=== PATIENT | female | born 1995 | race Caucasian/White ===

== ENCOUNTER 2019-11-30 13:23 | Emergency (ER) | payer OTHER ==
[2019-11-30] MEDS ORDERED: METHYLPREDNISOLONE INJ 125 MG/2 ML SDV IV ONE (13:32)
[2019-11-30] MEDS ORDERED: FAMOTIDINE INJ/PF 20 MG/2 ML SDV IV ONE (13:32)
[2019-11-30] MEDS ORDERED: DIPHENHYDRAMINE HCL 50 MG/ML VIAL IV ONE (13:32)
--- NOTE | 2019-11-30 13:37 | ER Document Report ---
ED Medical Screen (RME) - General Stated Complaint: POSSIBLE ALLERGIC REACTION - HPI Notes: 11/30/19 13:34 24-year-old female presents emergency room for hives on her arms, facial swelling with lip tingling that started last night. Patient states she has chronic urticaria, has been to multiple doctors who have always told her to just take Vistaril. Patient not tried any [id number] medications. Last menstrual cycle was 2 weeks ago. Patient states she had difficulty with secretions this morning but is not having any issues now. Patient is talking and laughing without any issues, able to maintain her secretions. Denies any fevers chills, denies any nausea vomiting diarrhea, denies any shortness of breath or chest pain. No recent travel outside of the [place] no recent exposure with COVID patient's I have greeted and performed a rapid initial assessment of this patient. A comprehensive ED assessment and evaluation of the patient, analysis of test results and completion of the medical decision making process will be conducted by additional ED providers. PHYSICAL EXAMINATION: GENERAL: Well-appearing, well-nourished and in no acute distress. HEAD: Atraumatic, normocephalic. EYES: Pupils equal round extraocular movements intact, conjunctiva are normal. Uvula midline. Able to maintain secretions. No noted lip swelling NECK: Normal range of motion CV: s1, s2 regular LUNGS: No respiratory distress Musculoskeletal: Normal range of motion NEUROLOGICAL: Normal speech, normal gait. SKIN: Warm, Dry, normal turgor, no rashes or lesions noted.
[2019-11-30 14:05] LABS: ABSOLUTE LYMPHOCYTES (AUTO) 1.4 10^3/uL (0.5-4.7); ABSOLUTE MONOCYTES (AUTO) 0.3 10^3/uL (0.1-1.4); ABSOLUTE NEUT (AUTO) 10.1 10^3/uL (1.7-8.2); BASOPHILS % (AUTO) 0.4 % (0-2); EOSINOPHILS % (AUTO) 0.4 % (0-6); HEMATOCRIT 37.2 % (36.0-47.0); HEMOGLOBIN 12.3 g/dL (12.0-15.5); LYMPHOCYTES % (AUTO) 11.7 % (13-45); MEAN CORPUSCULAR HEMOGLOBIN 21.8 pg (27.0-33.4); MEAN CORPUSCULAR HGB CONC 33.1 g/dL (32.0-36.0); MEAN CORPUSCULAR VOLUME 66 fl (80-97); MONOCYTES % (AUTO) 2.6 % (3-13); PLATELET COUNT 337 10^3/uL (150-450); RED BLOOD COUNT 5.64 10^6/uL (3.72-5.28); RED CELL DISTRIBUTION WIDTH 18.3 % (11.5-14.0); SEGMENTED NEUTROPHILS % (AUTO) 84.9 % (42-78); TOTAL CELLS COUNTED % (AUTO) 100 %; WHITE BLOOD COUNT 11.9 10^3/uL (4.0-10.5)
--- NOTE | 2019-11-30 14:19 | ER Document Report ---
Entered by SANTO TITUS SCRIBE 11/30/19 0143 Acting as scribe for:FELICIA MORA DO ED General - General Chief Complaint: Allergic Reaction Stated Complaint: POSSIBLE ALLERGIC REACTION Time Seen by Provider: 11/30/19 13:44 Information source: Patient Notes: This 24-year-old female presents to the emergency department complaining of hives and lip swelling that began last night and has worsened today. Patient states that she has been dealing with similar episodes for the past 5 years. Patient states that she has seen a sheet metal work furnace installer to have an allergy test with no positive allergies as a result. Patient said that her previous physicians have tried all different medication, all of which "just make me tired and sleep". Patient said that she takes Hydroxyzine for the pain associated with her hives but this also makes her "fall asleep". Patient states that previously, prednisone packs are what provided relief. - Related Data Allergies/Adverse Reactions: No Known Allergies Allergy (Verified 11/30/19 13:41) Past Medical History - General Information source: Patient - Social History Smoking Status: Never Smoker Cigarette use (# per day): No Chew tobacco use (# tins/day): No Frequency of alcohol use: None Drug Abuse: None Family History: Reviewed & Not Pertinent Patient has suicidal ideation: No Patient has homicidal ideation: No - Medical History Medical History: Negative Surgical Hx: Negative Review of Systems - Review of Systems Constitutional: No symptoms reported EENT: See HPI, Difficulty swallowing, Mouth swelling Cardiovascular: No symptoms reported Respiratory: No symptoms reported Gastrointestinal: No symptoms reported Genitourinary: No symptoms reported Female Genitourinary: No symptoms reported Musculoskeletal: No symptoms reported Skin: See HPI, Other - Hives Hematologic/Lymphatic: No symptoms reported Neurological/Psychological: No symptoms reported -: Yes All other systems reviewed and negative Physical Exam - Vital signs Vitals: Temp Pulse Resp BP Pulse Ox 99.1 F 129 H 18 133/76 H 100 11/30/19 13:29 11/30/19 13:29 11/30/19 13:29 11/30/19 13:29 11/30/19 13:29 - Notes Notes: Physical Exam: General: Alert, appears well. HEENT: Normocephalic. Atraumatic. PERRL. Extraocular movements intact. Oropharynx clear. see skin comment. Neck: Supple. Non-tender. Respiratory: No respiratory distress. Clear and equal breath sounds bilaterally. Cardiovascular: Regular rate and rhythm. Abdominal: Normal Inspection. Non-tender. No distension. Normal Bowel Sounds. Back: No gross abnormalities. Extremities: Moves all four extremities. Upper extremities: See skin comment. Normal ROM. Lower extremities: Normal inspection. No edema. Normal ROM. Neurological: Normal cognition. AAOx4. Normal speech. Psychological: Normal affect. Normal Mood. Skin: Warm. Dry. Normal color. Mild periorbital swelling. Mild perioral dermatitis with associated redness on face. Rash on UE consistent with hives. Course - Re-evaluation Re-evalutation: 11/30/19 13:56 MDM 24 year old with acute urticaria and h/o same. Discussed follow up and she expressed understanding. 11/30/19 14:15 Pt has widely patent airway and no tongue involvement. She is stable for follow up. - Vital Signs Vital signs: Temp Pulse Resp BP Pulse Ox 99.1 F 129 H 18 133/76 H 100 11/30/19 13:29 11/30/19 13:29 11/30/19 13:29 11/30/19 13:29 11/30/19 13:29 - Laboratory Result Diagrams: 11/30/19 13:45 11/30/19 13:45 Laboratory results interpreted by me: 11/30/19 13:45 WBC 11.9 H RBC 5.64 H MCV 66 L MCH 21.8 L RDW 18.3 H Lymph % (Auto) 11.7 L [place] % (Auto) 2.6 L Absolute Neuts (auto) 10.1 H Seg Neutrophils % 84.9 H Discharge - Discharge Clinical Impression: Urticaria Condition: Good Disposition: HOME, SELF-CARE Instructions: Acute Urticaria ([facility]) Additional Instructions: See your doctor or a bite block maker in follow up. Take vistaril as needed for itching. Try salvador for itching too if you can. Please return here for problems or concerns including but not limited to shortness of breath, lip or tongue swelling or other concerns. As discussed, do not drive for the next 4 hours. Prescriptions: Methylprednisolone [Medrol Dosepack (4 mg/Tab) 21 Tab/Dosepak] 4 mg PO ASDIR PRN #1 tab.ds.pk PRN Reason: Hydroxyzine Pamoate [Vistaril] 25 mg PO TID #20 capsule I personally performed the services described in the documentation, reviewed and edited the documentation which was dictated to the scribe in my presence, and it accurately records my words and actions.
[2019-11-30 14:25] LABS: ALBUMIN 4.2 g/dL (3.5-5.0); ALKALINE PHOSPHATASE 119 U/L (38-126); ANION GAP 10 (5-19); ASPARTATE AMINO TRANSFERASE 21 U/L (14-36); BILIRUBIN,TOTAL 0.6 mg/dL (0.2-1.3); BLOOD UREA NITROGEN 19 mg/dL (7-20); CALCIUM 9.3 mg/dL (8.4-10.2); CARBON DIOXIDE 22 mmol/L (22-30); CHLORIDE 106 mmol/L (98-107); GLUCOSE 89 mg/dL (75-110); POTASSIUM 4.2 mmol/L (3.6-5.0); TOTAL PROTEIN 7.9 g/dL (6.3-8.2)
--- NOTE | 2019-11-30 14:36 | RADIOLOGY REPORT (SQ) ---
EXAM DESCRIPTION: CHEST SINGLE VIEW IMAGES COMPLETED DATE/TIME: 11/30/2019 2:19 pm REASON FOR STUDY: allergic reaction, lip tingling, hives COMPARISON: None. EXAM PARAMETERS: NUMBER OF VIEWS: One view. TECHNIQUE: Single frontal radiographic view of the chest acquired. RADIATION DOSE: NA LIMITATIONS: None. FINDINGS: LUNGS AND PLEURA: No opacities, masses or pneumothorax. No pleural effusion. MEDIASTINUM AND HILAR STRUCTURES: No masses. Contour normal. HEART AND VASCULAR STRUCTURES: Heart normal in size. Normal vasculature. BONES: No acute findings. HARDWARE: None in the chest. OTHER: No other significant finding. IMPRESSION: 1. NO ACUTE RADIOGRAPHIC FINDING IN THE CHEST. TECHNICAL DOCUMENTATION: JOB ID: [id number] 2010 [employer]- All Rights Reserved Reading location - IP/workstation name: [email or web address]
[2019-11-30 14:41] VITALS: BP 115/75
== END 2019-11-30 14:41 | disposition home or self-care (01) ==
LOC: ER 13:23
DX: L50.9 Urticaria, unspecified (principal); L30.9 Dermatitis, unspecified; R13.10 Dysphagia, unspecified
CPT/HCPCS: 99283; 96374; 96375; 36415; 85025; 80053; 71045; J1200; J2930; S0028

== ENCOUNTER 2019-12-07 08:42 | Emergency (ER) | payer OTHER ==
--- NOTE | 2019-12-07 09:12 | ER Document Report ---
ED General - General Stated Complaint: POSSIBLE ALLERGIC REACTION Time Seen by Provider: 12/07/19 09:12 Primary Care Provider: VERO PRUETT MD [ACTIVE STAFF] - Follow up as needed - HPI Notes: 24-year-old female presents emergency room with systemic urticaria area that started this morning approximately 5 hours ago. Patient states she finished her last dose of prednisone yesterday from having a similar issue with it a week ago. Patient states she is had chronic [place] area for the last 5 years, has seen core blower, ship's pilot, senior microsoft net developer, white sourer which states she has chronic urticaria area without etiology. Patient still takes Vistaril nightly, though it is prescribed for 3 times a day she states she does not take it during the day because it causes her to be "sleepy". Last menstrual cycle was 2 weeks ago. has not taken any Vistaril today. Denies fevers, chills, chest pain,palpitations, shortness of breath, dyspnea, nausea, vomiting, diarrhea, abdominal pain, hematuria,blurred vision, double vision, loss of vision, speech changes, LH, dizziness, syncope, headaches, wheezing, ST, URI, neck pain, weakness, bowel or bladder dysfunction, saddle anesthesia, numbness or tingling in bilateral upper or lower extremities equally, muscle paralysis, weakness in bilateral upper or lower extremities equally. - Related Data Allergies/Adverse Reactions: No Known Allergies Allergy (Verified 11/30/19 13:41) Past Medical History - General Information source: Patient - Social History Smoking Status: Unknown if Ever Smoked Family History: Reviewed & Not Pertinent Review of Systems - Review of Systems Constitutional: No symptoms reported EENT: No symptoms reported Cardiovascular: No symptoms reported Respiratory: No symptoms reported Gastrointestinal: No symptoms reported Genitourinary: No symptoms reported Female Genitourinary: No symptoms reported Musculoskeletal: No symptoms reported Skin: No symptoms reported Hematologic/Lymphatic: No symptoms reported Neurological/Psychological: See HPI Physical Exam - Vital signs Vitals: Temp Pulse Resp BP Pulse Ox 98.8 F 121 H 16 127/66 H 100 12/07/19 08:50 12/07/19 08:50 12/07/19 08:50 12/07/19 08:50 12/07/19 08:50 - Notes Notes: PHYSICAL EXAMINATION: reviewed vital signs by RN GENERAL: Well-appearing, well-nourished and in no acute distress. HEAD: Atraumatic, normocephalic. EYES: Pupils equal round and reactive to light, extraocular movements intact, conjunctiva are normal. ENT: Nares patent, oropharynx clear without exudates. Moist mucous membranes. Uvula midline. No drooling. To manage secretions. Speech is clear NECK: Normal range of motion, supple without lymphadenopathy LUNGS: Breath sounds clear to auscultation bilaterally and equal. No wheezes rales or rhonchi. HEART: Regular rate and rhythm without murmurs ABDOMEN: Soft, nontender, nondistended abdomen. No guarding, no rebound. No masses appreciated. Female : deferred Musculoskeletal: Normal range of motion, no pitting or edema. No cyanosis. NEUROLOGICAL: Cranial nerves grossly intact. Normal speech, normal gait. Normal sensory, motor exams PSYCH: Normal mood, normal affect. SKIN: Warm, Dry, normal turgor, no rashes or lesions noted. Scattered [place] area systemically Course - Re-evaluation Re-evalutation: 12/07/19 10:29 Patient presents with symptoms consistent with an allergic reaction without anaphylaxis. only cutaneous involvement with multiple areas of hives. Patient has had multiple instances of chronic urticaria, I did see the patient last week for similar issue in the emergency room and was resolved with Solu-Medrol, Benadryl and famotidine. only cutaneous involvement with multiple areas of hives. Vitals otherwise within normal limits at time of arrival. No respiratory, GI, cardiovascular, or oral pharyngeal symptoms. A trial of epinephrine for symptom resolution was offered to the patient. This did resolve the majority of the patient's hives. Will recommend ongoing antihistamine therapy as an outpatient. At this time will discharge with return precautions and follow-up recommendations. Verbal discharge instructions given a the bedside and opportunity for questions given. Medication warnings reviewed. Patient is in agreement with this plan and has verbalized understanding of return precautions and the need for primary care follow-up in the next 24-72 hours. 12/07/19 10:43 - Vital Signs Vital signs: Temp Pulse Resp BP Pulse Ox 98.8 F 121 H 16 127/66 H 100 12/07/19 09:33 12/07/19 08:50 12/07/19 08:50 12/07/19 08:50 12/07/19 10:00 Discharge - Discharge Clinical Impression: Urticaria Condition: Stable Disposition: HOME, SELF-CARE Instructions: Acute Allergic Reaction ([facility]) Additional Instructions: You were seen today for hives. This can be either allergic, autoimmune, or environmental in origin. You can continue to take cetirizine 10mg up to 3 times daily as needed for itching. Apply the topical steroid cream that has been prescribed as needed for severe inching. IF YOU DEVELOP DIFFICULTY BREATHING, SPREADING OF HIVES, VOMITING, LIGHTHEADEDNESS, IMMEDIATELY AND CALL 911. Please follow-up with your primary care physician in the next 1-2 days. Return immediately for any new or worsening symptoms. Follow up with primary care provider, call tomorrow to make followup appointment. Prescriptions: Prednisone [Deltasone 20 mg Tablet] 3 tab PO DAILY 5 Days #15 tablet Hydroxyzine Pamoate [Vistaril 25 mg Capsule] 25 mg PO TID PRN #30 capsule PRN Reason: Forms: Return to Work Referrals: VERO PRUETT MD [ACTIVE STAFF] - Follow up as needed
[2019-12-07] MEDS ORDERED: METHYLPREDNISOLONE INJ 125 MG/2 ML SDV IV ONE (09:17)
[2019-12-07] MEDS ORDERED: FAMOTIDINE INJ/PF 20 MG/2 ML SDV IV ONE (09:17)
[2019-12-07] MEDS ORDERED: DIPHENHYDRAMINE HCL 50 MG/ML VIAL IV ONE (09:17)
[2019-12-07 10:57] VITALS: BP 124/66
== END 2019-12-07 10:58 | disposition home or self-care (01) ==
LOC: ER 08:42
DX: L50.9 Urticaria, unspecified (principal); Z79.899 Other long term (current) drug therapy
CPT/HCPCS: 99283; 96374; 96375; 36415; J1200; J2930; S0028